=== PATIENT | female | born 2000 | race Caucasian/White ===

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

== ENCOUNTER 2018-02-16 23:38 | Emergency (ER) | END 2018-02-17 02:07 | disposition home or self-care (01) ==

== ENCOUNTER 2018-03-23 03:38 | Emergency (ER) | payer SELFPAY ==
[~2018-03-23] VITALS: Ht 167.6 cm; Wt 62.6 kg
[~2018-03-23 03:38] MED LIST changes: +ACET500C5 PO; -ALBU8.5H3 INH; +ALBU8.5H8 INH; +FLUT9.9S NASAL; +GUAI5SYR2 PO; +IBUP-1542 PO; +IBUP-1561 PO; -IBUP400T22 PO; +MAG-19 PO; +ONDA4TAB8 PO; +RANI150T35 PO
[2018-03-23 03:41] VITALS: BP 113/68; PULSE 105; RESP 18; Ht 167.6 cm; Wt 62.6 kg
== END 2018-03-23 04:42 | disposition left against medical advice (07) ==
LOC: FTE 03:38
DX: Z53.21 Procedure and treatment not carried out due to patient leaving prior to being seen by health care provider (principal)